=== PATIENT | female | born 1965 | race Caucasian/White ===

== ENCOUNTER 2024-06-13 12:26 | Day surgery (SDC) | payer OTHER, SELFPAY ==
--- NOTE | 2024-06-13 12:31 | US_ITS ---
[address] [address] Patient Name: DENISSE TRIPLETT MRN: [facility]:[id number] date: 1965 Sex: F Assigned Patient Location: US Current Patient Location: Accession/Order Number: [id number] Exam Date: 06/13/2024 13:05 Report Date: 06/14/2024 06:56 At the request of: NOEL VASQUEZ Procedure: US biopsy thyroid EXAMINATION: US biopsy thyroid, US biopsy FNA add lesion HISTORY: Thyroid Nodule COMPARISON: Ultrasound thyroid 11/22/2022 TECHNIQUE: After obtaining informed consent, ultrasound-guided fine needle aspiration was performed in the usual sterile manner. FINDINGS: IMAGING: Ultrasound. BIOPSY NEEDLE: 25-gauge; 3 separate passes within both lesions. LOCATION: Right lobe: 1.5 cm hyperechoic mass. Left lobe: 1.0 cm hyperechoic mass. SPECIMEN TYPE: Cellular tissue. LOCAL ANESTHETIC: Buffered Xylocaine. COMPLICATIONS: None. LABORATORY: Prepared slide smears and washings for cell block evaluation. OTHER: Negative. PATHOLOGY: Pending. An addendum will be added when results are available. US/US biopsy thyroid IMPRESSION: 1. Uneventful ultrasound guided fine needle aspiration (FNA). 2. Pathology results are pending. Electronically authenticated by: CELINA DINH Date: 06/14/2024 06:56
--- NOTE | 2024-06-13 12:32 | US_ITS ---
[address] [address] Patient Name: DENISSE TRIPLETT MRN: [facility]:[id number] date: 1965 Sex: F Assigned Patient Location: US Current Patient Location: Accession/Order Number: [id number] Exam Date: 06/13/2024 13:01 Report Date: 06/14/2024 06:56 At the request of: NOEL VASQUEZ Procedure: US biopsy FNA add lesion EXAMINATION: US biopsy thyroid, US biopsy FNA add lesion HISTORY: Thyroid Nodule COMPARISON: Ultrasound thyroid 11/22/2022 TECHNIQUE: After obtaining informed consent, ultrasound-guided fine needle aspiration was performed in the usual sterile manner. FINDINGS: IMAGING: Ultrasound. BIOPSY NEEDLE: 25-gauge; 3 separate passes within both lesions. LOCATION: Right lobe: 1.5 cm hyperechoic mass. Left lobe: 1.0 cm hyperechoic mass. SPECIMEN TYPE: Cellular tissue. LOCAL ANESTHETIC: Buffered Xylocaine. COMPLICATIONS: None. LABORATORY: Prepared slide smears and washings for cell block evaluation. OTHER: Negative. PATHOLOGY: Pending. An addendum will be added when results are available. US/US biopsy FNA add lesion IMPRESSION: 1. Uneventful ultrasound guided fine needle aspiration (FNA). 2. Pathology results are pending. Electronically authenticated by: CELINA DINH Date: 06/14/2024 06:56
[2024-06-13 12:35] VITALS: BP 129/78; PULSE 80; O2SAT 99
[2024-06-13] MEDS: LIDOCAINE HCL 10 ML, SODIUM BICARBONATE 1 MEQ INJ (12:35)
--- NOTE | 2024-06-13 14:47 | SUR.PREOP ---
06/11/24 Pt instructed on procedure, date, time, and prep. Pt made aware to continue to hold her ASA until after the procedure.
== END 2024-06-13 13:55 | disposition home or self-care (01) ==
LOC: US 12:26
PROVIDERS: Radiology Diagnostic Radiology; PCP Internal Medicine; Visit Provider Otolaryngology
DX: E04.1 Nontoxic single thyroid nodule (principal)
CPT/HCPCS: 10005; 10006; 88173